=== PATIENT | female | born 1965 | race Two or more races ===

== ENCOUNTER 2018-03-29 07:20 | Emergency (ER) | payer SELFPAY ==
[~2018-03-29] VITALS: Ht 172.7 cm; Wt 90.7 kg
[2018-03-29] MEDS ORDERED: LISI5 PO (07:38)
[2018-03-29] MEDS ORDERED: ANTIDEPRESSANT (07:39)
[2018-03-29] MEDS ORDERED: LEVSOD125 PO (07:39)
[2018-03-29 08:32] LABS: BASOPHILS ABSOLUTE AUTO 0.02 K/mm3 (0.00-0.23); BASOPHILS PERCENT AUTO 0 % (0-2); EOSINOPHILS ABSOLUTE AUTO 0.25 K/mm3 (0.00-0.68); EOSINOPHILS PERCENT AUTO 3 % (0-6); Hematocrit 38.6 % (33.0-51.0); Hemoglobin 11.7 g/dL (11.5-16.0); IMMATURE GRAN ABSOLUTE AUTO 0.02 K/mm3 (0.00-0.10); IMMATURE GRAN PERCENT AUTO 0 % (0-1); LYMPHOCYTES PERCENT AUTO 23 % (21-46); MONOCYTES ABSOLUTE AUTO 0.54 K/mm3 (0.16-1.47); MONOCYTES PERCENT AUTO 7 % (4-13); Mean Corpuscular HGB 25.5 pg (26.0-34.0); Mean Corpuscular HGB Conc 30.3 g/dL (31.5-36.5); Mean Corpuscular Volume 84 fL (80-100); Mean Platelet Volume 10.4 fL (9.1-12.4); NEUTROPHILS ABSOLUTE AUTO 5.54 K/mm3 (1.96-9.15); NEUTROPHILS PERCENT AUTO 67 % (41-73); Platelet Count 256 K/mm3 (150-400); RDW Coefficient Variation 15.6 % (11.7-14.2); RDW Standard Deviation 48.5 fL (35.1-46.3); Red Blood Cell Count 4.58 M/mm3 (3.80-5.20); White Blood Cell Count 8.27 K/mm3 (4.00-11.30)
[2018-03-29 08:55] LABS: Alanine Aminotransfer (ALT/SGP 24 U/L (12-78); Albumin, Blood 3.7 g/dL (3.4-5.0); Albumin/Globulin Ratio 0.9 (0.8-1.8); Alk Phos 61 U/L (50-136); Anion Gap 9 mmol/L (6-16); Aspartate Aminotrans (AST/SGOT 16 U/L (12-37); Bilirubin, Total 0.3 mg/dL (0.1-1.0); Blood Urea Nitrogen 18 mg/dL (8-24); Bun/Creatinine Ratio 24.6 (12.0-20.0); CO2, Blood 22 mmol/L (21-32); Calcium, Blood 8.5 mg/dL (8.5-10.1); Chloride, Blood 107 mmol/L (98-108); Creatinine, Blood 0.73 mg/dL (0.40-1.00); Globulin, Blood 4.1 g/dL (2.2-4.0); Glomerular Filtration Rate >60 (60-); Glucose, Blood 96 mg/dL (70-99); Potassium, Blood 3.8 mmol/L (3.5-5.5); Sodium, Blood 138 mmol/L (136-145); Total Protein, Blood 7.8 g/dL (6.4-8.2); Troponin I <0.015 ng/mL (0.000-0.040)
[2018-03-29] MEDS ORDERED: Zofran4 MG PO (10:03)
== END 2018-03-29 10:11 | disposition home or self-care (01) ==
LOC: ER 07:20
PROVIDERS: Physician Assistant
DX: N92.1 Excessive and frequent menstruation with irregular cycle (principal); R55 Syncope and collapse; R11.0 Nausea; I10 Essential (primary) hypertension; E03.9 Hypothyroidism, unspecified; Z79.899 Other long term (current) drug therapy
CPT/HCPCS: 36415; 76830; 76856; 80053; 84484; 84703; 85025; 93005; 93010; 96361; 96374; 99284-25; J2405; J7030

== ENCOUNTER 2018-04-12 08:22 | Emergency (ER) | payer SELFPAY ==
[~2018-04-12] VITALS: Ht 175.3 cm; Wt 86.2 kg
[~2018-04-12 08:22] MED LIST: ANTIDEPRESSANT; LEVSOD125 PO; LISI5 PO; Zofran4 MG PO
[2018-04-12] MEDS ORDERED: PARO10 PO (09:19)
[2018-04-12] MEDS ORDERED: Mucinex600 MG PO (09:32)
== END 2018-04-12 09:45 | disposition home or self-care (01) ==
LOC: ER 08:22
DX: H65.92 Unspecified nonsuppurative otitis media, left ear (principal); Z79.899 Other long term (current) drug therapy
CPT/HCPCS: 99282

== ENCOUNTER → 2018-07-22 | Outpatient (CLI) | payer SELFPAY ==
[~2018-07-22] MED LIST changes: +Mucinex600 MG PO; +PARO10 PO
[2018-07-23 13:06] LABS: HPV 16 Negative (Negative); HPV 18 Negative (Negative); HPV OTHER HR TYPES Negative (Negative)
== END | disposition home or self-care (01) ==
LOC: LAB 12:17 → LAB SHORT 12:17
PROVIDERS: Nurse Practitioner Women's Health
DX: Z12.4 Encounter for screening for malignant neoplasm of cervix (principal); Z91.89 Other specified personal risk factors, not elsewhere classified
CPT/HCPCS: 87624; G0123

== ENCOUNTER 2018-10-08 12:40 | Day surgery (SDC) | payer SELFPAY ==
[~2018-10-08] VITALS: Ht 172.7 cm; Wt 96.4 kg
[2018-10-08] MEDS ORDERED: ESTROVEN 155 M155 MG PO (13:26)
--- NOTE | 2018-10-08 14:17 | NUR ---
10/08/18 1417 Kadi Pryor 5 IV ATTEMPTS SUCCESSFUL IN LEFT FOOT
== END 2018-10-08 15:42 | disposition home or self-care (01) ==
LOC: ORSCSDS 12:40
PROVIDERS: Obstetrics & Gynecology Gynecology
PROC: 0UDB8ZX Extraction of Endometrium, Via Natural or Artificial Opening Endoscopic, Diagnostic (ICD-10-PCS; principal; 2018-10-08 15:45)
PROC: 0UB98ZX Excision of Uterus, Via Natural or Artificial Opening Endoscopic, Diagnostic (ICD-10-PCS; principal; 2018-10-08 15:45)
DX: N93.9 Abnormal uterine and vaginal bleeding, unspecified (principal); N84.0 Polyp of corpus uteri; E03.9 Hypothyroidism, unspecified; I10 Essential (primary) hypertension; Z79.899 Other long term (current) drug therapy
CPT/HCPCS: 88305; J0690; J1100; J1885; J2250; J2405; J2704; J3010; J7120

== ENCOUNTER 2018-11-11 09:48 | Emergency (ER) | payer SELFPAY ==
[~2018-11-11] VITALS: Ht 172.7 cm; Wt 97.1 kg
[~2018-11-11 09:48] MED LIST changes: +ESTROVEN 155 M155 MG PO
[2018-11-11 10:42] LABS: BASOPHILS ABSOLUTE AUTO 0.02 K/mm3 (0.00-0.23); BASOPHILS PERCENT AUTO 0 % (0-2); EOSINOPHILS ABSOLUTE AUTO 0.14 K/mm3 (0.00-0.68); EOSINOPHILS PERCENT AUTO 2 % (0-6); Hematocrit 36.2 % (33.0-51.0); Hemoglobin 11.1 g/dL (11.5-16.0); IMMATURE GRAN ABSOLUTE AUTO 0.01 K/mm3 (0.00-0.10); IMMATURE GRAN PERCENT AUTO 0 % (0-1); LYMPHOCYTES ABSOLUTE AUTO 2.17 K/mm3 (0.84-5.20); LYMPHOCYTES PERCENT AUTO 29 % (21-46); MONOCYTES ABSOLUTE AUTO 0.63 K/mm3 (0.16-1.47); MONOCYTES PERCENT AUTO 9 % (4-13); Mean Corpuscular HGB 25.1 pg (26.0-34.0); Mean Corpuscular HGB Conc 30.7 g/dL (31.5-36.5); Mean Corpuscular Volume 82 fL (80-100); NEUTROPHILS ABSOLUTE AUTO 4.47 K/mm3 (1.96-9.15); NEUTROPHILS PERCENT AUTO 60 % (41-73); RDW Coefficient Variation 16.6 % (11.7-14.2); RDW Standard Deviation 49.6 fL (35.1-46.3); Red Blood Cell Count 4.43 M/mm3 (3.80-5.20); White Blood Cell Count 7.44 K/mm3 (4.00-11.30)
[2018-11-11 10:44] LABS: Mean Platelet Volume 10.6 fL (9.1-12.4); Platelet Count 265 K/mm3 (150-400)
[2018-11-11] MEDS ORDERED: LISI20 PO (10:44)
[2018-11-11] MEDS ORDERED: LEVO-T25 MCG PO (10:44)
[2018-11-11] MEDS ORDERED: Paxil20 MG PO (10:45)
[2018-11-11 10:56] LABS: Bilirubin, Urine Neg (Neg); Blood, Urine 5+ (Neg); Glucose Qualitative, Urine Neg (Neg); Ketones, Urine Neg (Neg); Leukocyte Esterase, Urine 1+ (Neg); Nitrite, Urine Neg (Neg); Protein, Urine 1+ (Neg); Source, Urine Clean Catch; Urobilinogen, Urine NORM (Normal); pH, Urine 6.5 (5.0-8.0)
[2018-11-11 10:59] LABS: Alanine Aminotransfer (ALT/SGP 21 U/L (12-78); Albumin, Blood 3.6 g/dL (3.4-5.0); Albumin/Globulin Ratio 0.9 (0.8-1.8); Alk Phos 69 U/L (50-136); Anion Gap 5 mmol/L (6-16); Aspartate Aminotrans (AST/SGOT 11 U/L (12-37); Bilirubin, Total 0.4 mg/dL (0.1-1.0); Blood Urea Nitrogen 15 mg/dL (8-24); Bun/Creatinine Ratio 20.5 (12.0-20.0); CO2, Blood 25 mmol/L (21-32); Calcium, Blood 8.9 mg/dL (8.5-10.1); Chloride, Blood 108 mmol/L (98-108); Creatinine, Blood 0.73 mg/dL (0.40-1.00); Globulin, Blood 4.2 g/dL (2.2-4.0); Glomerular Filtration Rate >60 (60-); Glucose, Blood 91 mg/dL (70-99); Potassium, Blood 4.4 mmol/L (3.5-5.5); Sodium, Blood 138 mmol/L (136-145); Total Protein, Blood 7.8 g/dL (6.4-8.2)
[2018-11-11 11:07] LABS: Appearance, Urine Hazy (Clear); Bacteria Rare /hpf; Color, Urine Yellow (P-Yellow); Red Blood Cells, Urine 50-100 /hpf (0-2); Squamous Epithelial Cells Rare /hpf (Few)
[2018-11-11] MEDS ORDERED: FERSU300 PO (11:38)
[2018-11-11 12:37] LABS: Free Thyroxine 1.02 ng/dL (0.70-1.60)
[2018-11-11 12:38] LABS: Thyroid Stimulating Hormone 2.35 uIU/mL (0.360-4.800)
== END 2018-11-11 11:46 | disposition home or self-care (01) ==
LOC: ER 09:48
PROVIDERS: Emergency Medicine; Internal Medicine; Physician Assistant
DX: N94.6 Dysmenorrhea, unspecified (principal); D50.9 Iron deficiency anemia, unspecified; Z79.899 Other long term (current) drug therapy; I10 Essential (primary) hypertension; E03.9 Hypothyroidism, unspecified
CPT/HCPCS: 80053; 81001; 81025; 84439; 84443; 85025; 85730; 87086; 93005; 93010; 99284-25

== ENCOUNTER → 2019-12-19 | Outpatient (CLI) | payer OTHER ==
[~2019-12-19] MED LIST changes: +FERSU300 PO; +LEVO-T25 MCG PO; +LISI20 PO; +Paxil20 MG PO
== END ==
LOC: LAB SHORT 17:00 → LAB 17:00
DX: R34 Anuria and oliguria (principal); R30.0 Dysuria
CPT/HCPCS: 87086

== ENCOUNTER 2020-01-22 11:09 | Emergency (ER) | payer OTHER ==
[~2020-01-22] VITALS: Ht 172.7 cm; Wt 90.7 kg
[2020-01-22] MEDS ORDERED: HYDR1TAB94 PO (12:44)
== END 2020-01-22 14:31 | disposition home or self-care (01) ==
LOC: ER 11:09
DX: S42.032A Displaced fracture of lateral end of left clavicle, initial encounter for closed fracture (principal); S01.112A Laceration without foreign body of left eyelid and periocular area, initial encounter; I10 Essential (primary) hypertension; E03.9 Hypothyroidism, unspecified; Z23 Encounter for immunization; Z79.899 Other long term (current) drug therapy; W18.30XA Fall on same level, unspecified, initial encounter
CPT/HCPCS: 12001; 70450; 72125; 73030; 90471; 90714; 99284-25

== ENCOUNTER → 2021-05-08 | Outpatient (CLI) | payer OTHER ==
[~2021-05-08] MED LIST changes: +HYDR1TAB94 PO
== END | disposition home or self-care (01) ==
LOC: LAB 09:50 → LAB SHORT 09:50
DX: R30.0 Dysuria (principal)
CPT/HCPCS: 87086

== ENCOUNTER → 2021-06-16 | Outpatient (CLI) | payer OTHER | END | disposition home or self-care (01) | LOC: LAB SHORT 10:01 → LAB 10:01 | DX: N39.0 Urinary tract infection, site not specified (principal) | CPT/HCPCS: 87077; 87086; 87147; 87186 ==

== ENCOUNTER 2021-11-15 14:06 | Emergency (ER) | payer OTHER ==
[~2021-11-15] VITALS: Ht 172.7 cm; Wt 95.2 kg
[2021-11-15] MEDS ORDERED: ARIPIPRAZOLE2 M1 PO (15:15)
[2021-11-15] MEDS ORDERED: ESTROVEN CMPLT M4 MG PO (15:16)
[2021-11-15] MEDS ORDERED: IBUP600 PO (16:02)
== END 2021-11-15 16:55 | disposition home or self-care (01) ==
LOC: ER 14:06
DX: S82.52XA Displaced fracture of medial malleolus of left tibia, initial encounter for closed fracture (principal); I10 Essential (primary) hypertension; E03.9 Hypothyroidism, unspecified; Z79.899 Other long term (current) drug therapy; X58.XXXA Exposure to other specified factors, initial encounter
CPT/HCPCS: 73610; J1885

== ENCOUNTER 2021-11-28 07:29 | Day surgery (SDC) | payer OTHER ==
[~2021-11-28] VITALS: Ht 172.7 cm; Wt 95.2 kg
[~2021-11-28 07:29] MED LIST changes: +ARIPIPRAZOLE2 M1 PO; +ESTROVEN CMPLT M4 MG PO; +ESTROVEN PO; +IBUP600 PO; +Norco 5-325 Ta1 EACH PO
--- NOTE | 2021-11-28 10:13 | NUR ---
11/28/21 1013 Sirisha Hudson ROPIVACAINE 0.5% 10 MLS MIXED & VERIFIED IN OR BY RNS W/ EPI 0.05 ML PER ORDER, TO MAKE ROPIVACAINE 0.5% 1:200,000 FOR INJECTION AT OPSITE BY DR. TEJEDA. 10 MLS OF THIS LOCAL INJECTED.
--- NOTE | 2021-11-28 12:09 | NUR ---
11/28/21 1209 German Ramirez FENTANYL 25MCG GIVEN AT 1155 FOR LEFT ANKLE PAIN AT 5/10. PERCOCET 5/325 GIVEN AT 1205 FOR PAIN AT 3/10.
== END 2021-11-28 12:36 | disposition home or self-care (01) ==
LOC: ORSCSDS 07:29
DX: S82.842A Displaced bimalleolar fracture of left lower leg, initial encounter for closed fracture (principal); S93.432A Sprain of tibiofibular ligament of left ankle, initial encounter; I10 Essential (primary) hypertension; E03.9 Hypothyroidism, unspecified; Z79.899 Other long term (current) drug therapy
CPT/HCPCS: A9270; C1713; C1769; C1776; J0171; J0690; J1100; J1885; J2250; J2405; J2704; J2795; J3010

== ENCOUNTER → 2022-01-13 | Outpatient (CLI) | payer OTHER | END | disposition home or self-care (01) | LOC: LAB SHORT 13:01 → LAB 13:01 | DX: R35.0 Frequency of micturition (principal) | CPT/HCPCS: 87086 ==

== ENCOUNTER → 2022-12-04 | Outpatient (CLI) | payer OTHER ==
[2022-12-08 15:10] LABS: HPV 16 Negative (Negative); HPV 18 Negative (Negative); HPV OTHER HR TYPES Negative (Negative)
== END | disposition home or self-care (01) ==
LOC: LAB SHORT 17:24 → LAB 17:24
PROVIDERS: Obstetrics & Gynecology
DX: Z12.4 Encounter for screening for malignant neoplasm of cervix (principal)
CPT/HCPCS: 87624; G0145

== ENCOUNTER 2024-03-15 06:33 | Emergency (ER) | payer OTHER ==
[~2024-03-15] VITALS: Ht 172.7 cm; Wt 95.2 kg
[2024-03-15 06:38] VITALS: BP 122/75
[2024-03-15] MEDS ORDERED: Ondansetron 4 MG SoluTab SL ONE (06:55)
== END 2024-03-15 09:04 | disposition home or self-care (01) ==
LOC: ER 06:33
DX: S09.90XA Unspecified injury of head, initial encounter (principal); W18.30XA Fall on same level, unspecified, initial encounter; I10 Essential (primary) hypertension; E03.9 Hypothyroidism, unspecified; Z79.890 Hormone replacement therapy; Z79.899 Other long term (current) drug therapy
CPT/HCPCS: 70450; 99283-25; A9270

== ENCOUNTER → 2024-04-08 | Outpatient (CLI) | payer OTHER | END | disposition home or self-care (01) | LOC: LAB SHORT 11:51 → LAB 11:51 | DX: R30.9 Painful micturition, unspecified (principal); R35.0 Frequency of micturition | CPT/HCPCS: 87086 ==